=== PATIENT | male | born 1965 | race Two or more races ===

== ENCOUNTER 2023-07-20 03:37 | Inpatient (IN) | payer MEDICAID ==
[~2023-07-20] VITALS: Ht 167.6 cm; Wt 77.1 kg
[2023-07-20] VITALS (7 sets, daily range): BP systolic 93; BP diastolic 58; TEMP 98.8; O2SAT 93–100
[2023-07-20] MEDS ORDERED: ACETAMINOPHEN 650 MG/SUPP.RECT RC ONE ×2 (03:56→04:00)
[2023-07-20] MEDS ORDERED: IV NS 0.9% 1,000 ML BAG IV ONE (04:00)
[2023-07-20 04:11] LABS: EOSINOPHILS # (AUTO) 0.1 K/uL (0.0-0.7); EOSINOPHILS % (AUTO) 0.9 % (0.0-6.0); HEMATOCRIT 36 % (39-51); HEMOGLOBIN 12.2 g/dL (13.5-17.5); LYMPHOCYTES # (AUTO) 0.3 K/uL (0.8-4.8); LYMPHOCYTES % (AUTO) 3.5 % (20.0-44.0); MEAN CORPUSCULAR HEMOGLOBIN 28 PG (26.0-33.0); MEAN CORPUSCULAR HGB CONC 34 g/dl (31.0-36.0); MEAN CORPUSCULAR VOLUME 84 fL (80-96); MONOCYTES % (AUTO) 0.4 % (2.0-12.0); NEUTROPHILS # (AUTO) 7.3 K/uL (1.8-8.9); NEUTROPHILS % (AUTO) 95.2 % (43.0-81.0); PLATELET COUNT (AUTO) 334 K/uL (150-450); RED BLOOD CELL COUNT(AUTO) 4.33 MIL/uL (4.5-6.0); WHITE BLOOD COUNT (AUTO) 7.7 K/uL (4.3-11.0)
[2023-07-20 04:26] LABS: APPEARANCE,URINE TURBID (CLEAR); BILIRUBIN,URINE 1+ (NEGATIVE); BLOOD, URINE 3+ Ery/uL (NEGATIVE); COLOR,URINE DARK YELLOW (YELLOW); KETONES,URINE NEGATIVE (NEGATIVE); LEUKOCYTE ESTERASE ,URINE 2+ (NEGATIVE); NITRITE, URINE NEGATIVE (NEGATIVE); PH,URINE 5.5 (5.0-8.0); PROTEIN,URINE 2+ mg/dl (NEGATIVE); RBC,URINE 21-50 /HPF (0-2); UGLUCOSE NEGATIVE (NEGATIVE); UROBILINOGEN,URINE 0.2 EU/dL (0.2)
[2023-07-20 04:26] LABS: INR 1.08 (0.91-1.10); PARTIAL THROMBOPLASTIN TIME 25.6 SEC (24.3-34.3); PROTHROMBIN TIME 11.4 SECS (9.2-11.1)
[2023-07-20 04:27] LABS: ADD URINE CULTURE YES; BACTERIA,URINE Few /HPF (None Seen); SQUAMOUS EPITHELIAL CELL,UR Few /HPF (None Seen)
[2023-07-20 04:28] LABS: CALCIUM, SERUM 9.4 mg/dL (8.5-10.1); CARBON DIOXIDE 23 mmol/L (21-32); CHLORIDE 101 mmol/L (98-107); CREATININE 1.4 mg/dL (0.6-1.3); GLUCOSE 134 mg/dL (74-106); POTASSIUM 3.6 mmol/L (3.5-5.1); SODIUM SERUM 137 mmol/L (136-145); UREA NITROGEN, BLOOD 25 mg/dL (7-18)
[2023-07-20 04:44] LABS: ALANINE AMINOTRANSFERASE 34 U/L (12-78); ALBUMIN 2.8 g/dL (3.4-5.0); ALKALINE PHOSPHATASE 287 U/L (46-116); ASPARTATE AMINOTRANSFERASE 35 U/L (15-37); BILIRUBIN,DIRECT 0.5 mg/dL (0.0-0.2); BILIRUBIN,TOTAL 0.9 mg/dL (0.2-1.0); TOTAL PROTEIN, SERUM 7.9 g/dL (6.4-8.2)
[2023-07-20 04:53] LABS: LACTIC ACID 5.2 mmol/L (0.4-2.0)
[2023-07-20] MEDS ORDERED: LEVOFLOXACIN 750 MG /D5W 150ML 150 ML IV ONE ×2 (04:59→05:00)
[2023-07-20] MEDS ORDERED: Z GUARD REMEDY 4 OZ OINT TP PRN (06:30)
[2023-07-20] MEDS ORDERED: MAG HYDROX/AL HYDROX/SIMETH 30 ML UDC PO PRN (06:30)
[2023-07-20] MEDS ORDERED: ZOLPIDEM TARTRATE 5 MG TABLET PO PRN (06:30)
[2023-07-20] MEDS ORDERED: ONDANSETRON HCL/PF 4 MG/2 ML VIAL IVP PRN (06:30)
[2023-07-20] MEDS ORDERED: ACETAMINOPHEN 325 MG TABLET PO PRN (06:30)
[2023-07-20] MEDS ORDERED: MAGNESIUM HYDROXIDE 30 ML UDC PO PRN (06:30)
[2023-07-20] MEDS: IV NS 0.9% 1,000 ML IV PRN (08:00)
[2023-07-20] MEDS ORDERED: CEFEPIME 1 GM in IV D5W 50 ML IV SCH (08:00)
[2023-07-20] MEDS ORDERED: ACET-868 GT (08:42)
[2023-07-20] MEDS ORDERED: INSU100V3 SQ (08:42)
[2023-07-20] MEDS ORDERED: MULT-447 GT (08:42)
[2023-07-20] MEDS ORDERED: BISA10SU11 RC (08:42)
[2023-07-20] MEDS ORDERED: DEXT50DI8 IV (08:42)
[2023-07-20] MEDS ORDERED: SACU1TAB GT (08:42)
[2023-07-20] MEDS ORDERED: AMIN30LI2 GT (08:42)
[2023-07-20] MEDS ORDERED: FAMO20TA8 GT (08:42)
[2023-07-20] MEDS ORDERED: ASCO-352 GT (08:42)
[2023-07-20] MEDS ORDERED: POLY17PO4 GT (08:42)
[2023-07-20] MEDS ORDERED: ZINC50TA69 GT (08:42)
[2023-07-20] MEDS ORDERED: ONDA4TAB5 GT (08:42)
[2023-07-20] MEDS ORDERED: CHLO473M5 MM (08:42)
[2023-07-20] MEDS ORDERED: DOXA4TAB3 GT (08:42)
[2023-07-20] MEDS ORDERED: HYDR-4076 GT (08:42)
[2023-07-20] MEDS ORDERED: NUTR250L58 GT (08:42)
[2023-07-20] MEDS ORDERED: CRAN425C6 GT (08:42)
[2023-07-20] MEDS ORDERED: HEPA50007 SQ (08:42)
[2023-07-20] MEDS ORDERED: LEVE100S GT (08:42)
[2023-07-20] MEDS ORDERED: LORA10TA7 GT (08:42)
[2023-07-20] MEDS ORDERED: SENN-261 GT (08:42)
[2023-07-20] MEDS ORDERED: BROM5CAP3 GT (08:42)
[2023-07-20] MEDS: VANCOMYCIN 1.25 GM in IV D5W 250 ML IV SCH (08:55)
[2023-07-20] MEDS: CEFEPIME 1 GM in IV D5W 50 ML IV SCH (13:00)
[2023-07-20] MEDS ORDERED: hydrALAZINE HCL 25 MG TABLET GT PRN (19:00)
[2023-07-20] MEDS ORDERED: ACETAMINOPHEN 325 MG TABLET MC PRN (19:00)
[2023-07-20] MEDS ORDERED: DEXTROSE 50%-WATER 50 ML DISP.SYRIN IV PRN ×2 (19:00)
[2023-07-20] MEDS ORDERED: BISACODYL SUPP (10 MG) 10 MG/SUPP.RECT SUPP.RECT RC PRN (19:00)
[2023-07-20] MEDS: LEVETIRACETAM SOL (5 ML) 100 MG/ML UDC GT SCH (21:38)
[2023-07-20] MEDS: HEPARIN SODIUM, PORCINE 5000 UNITS/1 ML VIAL SQ SCH (21:39)
[2023-07-20] MEDS: SACUBITRIL/VALSARTAN 1 EACH TABLET GT SCH (21:40)
[2023-07-20] MEDS: BROMOCRIPTINE MESYLATE (2.5MG) 2.5 MG TABLET GT SCH ×2 (21:40→21:51)
[2023-07-20] MEDS: CHLORHEXIDINE GLUCONATE 15 ML UDC MM SCH (21:41)
[2023-07-21] VITALS (11 sets, daily range): BP systolic 94–105; BP diastolic 65–78; TEMP 98.1–98.7; O2SAT 94–100
[2023-07-21] MEDS ORDERED: VITAL AF 1.2 1,000 ML BOTTLE GT PRN
[2023-07-21] MEDS: IV NS 0.9% 1,000 ML IV PRN ×2 (00:23→17:48)
[2023-07-21] MEDS: BLOOD SUGAR DIAGNOSTIC 1 EACH STRIP IN SCH ×5 (00:24→23:22)
[2023-07-21] MEDS: INSULIN REGULAR, HUMAN 100 UNIT/ML 3 ML VIAL SQ PRN ×3 (00:31→23:21)
[2023-07-21] MEDS: BROMOCRIPTINE MESYLATE (2.5MG) 2.5 MG TABLET GT SCH ×3 (05:00→21:47)
[2023-07-21 06:56] LABS: BASOPHILS # (AUTO) 0.1 K/uL (0.0-0.2); BASOPHILS % (AUTO) 0.3 % (0.0-2.0); EOSINOPHILS # (AUTO) 0.4 K/uL (0.0-0.7); EOSINOPHILS % (AUTO) 1.8 % (0.0-6.0); HEMATOCRIT 31 % (39-51); HEMOGLOBIN 10.1 g/dL (13.5-17.5); LYMPHOCYTES # (AUTO) 1.4 K/uL (0.8-4.8); LYMPHOCYTES % (AUTO) 6.3 % (20.0-44.0); MEAN CORPUSCULAR HEMOGLOBIN 28 PG (26.0-33.0); MEAN CORPUSCULAR HGB CONC 33 g/dl (31.0-36.0); MEAN CORPUSCULAR VOLUME 85 fL (80-96); MONOCYTES % (AUTO) 4.7 % (2.0-12.0); NEUTROPHILS # (AUTO) 18.9 K/uL (1.8-8.9); NEUTROPHILS % (AUTO) 86.9 % (43.0-81.0); PLATELET COUNT (AUTO) 295 K/uL (150-450); RED CELL DISTRIBUTION WIDTH 13.6 % (11.5-15.0); WHITE BLOOD COUNT (AUTO) 21.7 K/uL (4.3-11.0)
[2023-07-21 07:03] LABS: CALCIUM, SERUM 9.1 mg/dL (8.5-10.1); CREATININE 1.2 mg/dL (0.6-1.3); PHOSPHORUS 3.6 mg/dL (2.5-4.9); POTASSIUM 3.4 mmol/L (3.5-5.1)
[2023-07-21] MEDS: LEVETIRACETAM SOL (5 ML) 100 MG/ML UDC GT SCH ×2 (08:38→21:45)
[2023-07-21] MEDS: LORATADINE 10 MG TABLET GT SCH (08:38)
[2023-07-21] MEDS: SENNOSIDES 8.6 MG TABLET GT SCH (08:38)
[2023-07-21] MEDS: ASCORBIC ACID 500 MG TABLET GT SCH (08:39)
[2023-07-21] MEDS: DOXAZOSIN MESYLATE (4 MG) 4 MG TABLET GT SCH (08:39)
[2023-07-21] MEDS: FAMOTIDINE (20 MG) 20 MG TABLET GT SCH ×2 (08:39→17:48)
[2023-07-21] MEDS: CHLORHEXIDINE GLUCONATE 15 ML UDC MM SCH ×2 (08:39→21:51)
[2023-07-21] MEDS: HEPARIN SODIUM, PORCINE 5000 UNITS/1 ML VIAL SQ SCH ×2 (08:43→21:53)
[2023-07-21] MEDS: VANCOMYCIN 1.25 GM in IV D5W 250 ML IV SCH (08:45)
[2023-07-21] MEDS: POLYETHYLENE GLYCOL 3350 17 GM POWD.PACK GT SCH (08:47)
[2023-07-21] MEDS: DAKINS QUARTER STRENGTH (0.125%) 480 ML BOTTLE TOP SCH (08:48)
[2023-07-21] MEDS: SACUBITRIL/VALSARTAN 1 EACH TABLET GT SCH ×2 (08:51→21:47)
[2023-07-21] MEDS ORDERED: POTASSIUM CHLORIDE 20 MEQ POWDER PACKET GT ONE (10:00)
[2023-07-21] MEDS: CEFEPIME 1 GM in IV D5W 50 ML IV SCH (12:29)
[2023-07-21] MEDS ORDERED: VITAL AF 1.2 1,000 ML BOTTLE GT SCH (13:00)
[2023-07-21] MEDS ORDERED: MAGNESIUM HYDROXIDE 30 ML UDC GT PRN (13:04)
[2023-07-21] MEDS ORDERED: ZOLPIDEM TARTRATE 5 MG TABLET GT PRN (13:04)
[2023-07-21] MEDS ORDERED: MAG HYDROX/AL HYDROX/SIMETH 30 ML UDC GT PRN (13:04)
[2023-07-21] MEDS ORDERED: ACETAMINOPHEN 650 MG/20.3 ML UDC GT PRN (13:30)
[2023-07-21] MEDS: PROSOURCE / PROSTAT (PYXIS) 30 ML UDC GT SCH (17:48)
[2023-07-21] MEDS: MUPIROCIN OINT 2% 22 GM TUBE NS SCH (21:44)
[2023-07-22] VITALS (12 sets, daily range): BP systolic 109–138; BP diastolic 73–96; TEMP 97.9–99; O2SAT 95–100
[2023-07-22] MEDS: BROMOCRIPTINE MESYLATE (2.5MG) 2.5 MG TABLET GT SCH ×3 (05:28→21:45)
[2023-07-22] MEDS: INSULIN REGULAR, HUMAN 100 UNIT/ML 3 ML VIAL SQ PRN (05:57)
[2023-07-22] MEDS: BLOOD SUGAR DIAGNOSTIC 1 EACH STRIP IN SCH ×3 (05:58→18:39)
[2023-07-22 08:32] LABS: BASOPHILS % (AUTO) 0.2 % (0.0-2.0); EOSINOPHILS # (AUTO) 0.3 K/uL (0.0-0.7); EOSINOPHILS % (AUTO) 2.3 % (0.0-6.0); HEMATOCRIT 27 % (39-51); HEMOGLOBIN 8.7 g/dL (13.5-17.5); LYMPHOCYTES # (AUTO) 2.2 K/uL (0.8-4.8); LYMPHOCYTES % (AUTO) 14.7 % (20.0-44.0); MEAN CORPUSCULAR HEMOGLOBIN 28 PG (26.0-33.0); MEAN CORPUSCULAR HGB CONC 33 g/dl (31.0-36.0); MEAN CORPUSCULAR VOLUME 85 fL (80-96); MONOCYTES # (AUTO) 0.8 K/uL (0.1-1.30); MONOCYTES % (AUTO) 5.1 % (2.0-12.0); NEUTROPHILS # (AUTO) 11.5 K/uL (1.8-8.9); NEUTROPHILS % (AUTO) 77.7 % (43.0-81.0); PLATELET COUNT (AUTO) 303 K/uL (150-450); RED BLOOD CELL COUNT(AUTO) 3.14 MIL/uL (4.5-6.0); RED CELL DISTRIBUTION WIDTH 13.4 % (11.5-15.0); WHITE BLOOD COUNT (AUTO) 14.9 K/uL (4.3-11.0)
[2023-07-22] MEDS: CHLORHEXIDINE GLUCONATE 15 ML UDC MM SCH ×2 (08:34→21:41)
[2023-07-22] MEDS: PROSOURCE / PROSTAT (PYXIS) 30 ML UDC GT SCH ×2 (08:34→17:29)
[2023-07-22] MEDS: POLYETHYLENE GLYCOL 3350 17 GM POWD.PACK GT SCH (08:34)
[2023-07-22] MEDS: LEVETIRACETAM SOL (5 ML) 100 MG/ML UDC GT SCH ×2 (08:35→21:41)
[2023-07-22] MEDS: DOXAZOSIN MESYLATE (4 MG) 4 MG TABLET GT SCH (08:36)
[2023-07-22] MEDS: ASCORBIC ACID 500 MG TABLET GT SCH (08:36)
[2023-07-22] MEDS: LORATADINE 10 MG TABLET GT SCH (08:36)
[2023-07-22] MEDS: FAMOTIDINE (20 MG) 20 MG TABLET GT SCH ×2 (08:37→17:30)
[2023-07-22] MEDS: SENNOSIDES 8.6 MG TABLET GT SCH (08:37)
[2023-07-22] MEDS: DAKINS QUARTER STRENGTH (0.125%) 480 ML BOTTLE TOP SCH (08:38)
[2023-07-22] MEDS: HEPARIN SODIUM, PORCINE 5000 UNITS/1 ML VIAL SQ SCH ×3 (08:38→21:44)
[2023-07-22] MEDS: SACUBITRIL/VALSARTAN 1 EACH TABLET GT SCH ×2 (08:40→21:42)
[2023-07-22] MEDS: VANCOMYCIN 1.25 GM in IV D5W 250 ML IV SCH (08:41)
[2023-07-22] MEDS: MUPIROCIN OINT 2% 22 GM TUBE NS SCH ×2 (08:43→21:44)
[2023-07-22 08:45] LABS: CALCIUM, SERUM 8.9 mg/dL (8.5-10.1); CREATININE 0.8 mg/dL (0.6-1.3); MAGNESIUM 1.9 mg/dL (1.8-2.4); POTASSIUM 3.5 mmol/L (3.5-5.1)
[2023-07-22] MEDS: CEFEPIME 1 GM in IV D5W 50 ML IV SCH (12:16)
[2023-07-22] MEDS: IV NS 0.9% 1,000 ML IV PRN (18:42)
[2023-07-22] MEDS: VANCOMYCIN 1 GM in IV D5W 250ml IV SCH (20:00)
[2023-07-22] MEDS: JEVITY 1.2 CAL 1,000 ML BOTTLE GT PRN (22:16)
[2023-07-23] VITALS (12 sets, daily range): BP systolic 118–133; BP diastolic 83–95; TEMP 97.5–98.5; O2SAT 96–99
[2023-07-23] MEDS: BLOOD SUGAR DIAGNOSTIC 1 EACH STRIP IN SCH ×4 (00:05→17:58)
[2023-07-23] MEDS: INSULIN REGULAR, HUMAN 100 UNIT/ML 3 ML VIAL SQ PRN ×3 (00:29→17:58)
[2023-07-23] MEDS: BROMOCRIPTINE MESYLATE (2.5MG) 2.5 MG TABLET GT SCH ×3 (04:43→21:28)
[2023-07-23 07:12] LABS: BASOPHILS % (AUTO) 0.3 % (0.0-2.0); EOSINOPHILS # (AUTO) 0.3 K/uL (0.0-0.7); EOSINOPHILS % (AUTO) 3.9 % (0.0-6.0); HEMATOCRIT 33 % (39-51); HEMOGLOBIN 10.8 g/dL (13.5-17.5); LYMPHOCYTES # (AUTO) 1.6 K/uL (0.8-4.8); LYMPHOCYTES % (AUTO) 19.8 % (20.0-44.0); MEAN CORPUSCULAR HEMOGLOBIN 28 PG (26.0-33.0); MEAN CORPUSCULAR HGB CONC 33 g/dl (31.0-36.0); MEAN CORPUSCULAR VOLUME 85 fL (80-96); MONOCYTES # (AUTO) 0.4 K/uL (0.1-1.30); MONOCYTES % (AUTO) 5.3 % (2.0-12.0); NEUTROPHILS # (AUTO) 5.7 K/uL (1.8-8.9); NEUTROPHILS % (AUTO) 70.7 % (43.0-81.0); PLATELET COUNT (AUTO) 289 K/uL (150-450); RED CELL DISTRIBUTION WIDTH 13.5 % (11.5-15.0); WHITE BLOOD COUNT (AUTO) 8.1 K/uL (4.3-11.0)
[2023-07-23 07:43] LABS: CALCIUM, SERUM 9.1 mg/dL (8.5-10.1); CREATININE 0.8 mg/dL (0.6-1.3); MAGNESIUM 1.8 mg/dL (1.8-2.4); PHOSPHORUS 4.6 mg/dL (2.5-4.9); POTASSIUM 3.3 mmol/L (3.5-5.1)
[2023-07-23] MEDS: CHLORHEXIDINE GLUCONATE 15 ML UDC MM SCH ×2 (09:28→21:29)
[2023-07-23] MEDS: LEVETIRACETAM SOL (5 ML) 100 MG/ML UDC GT SCH ×2 (09:28→21:26)
[2023-07-23] MEDS: PROSOURCE / PROSTAT (PYXIS) 30 ML UDC GT SCH ×2 (09:28→17:08)
[2023-07-23] MEDS: ASCORBIC ACID 500 MG TABLET GT SCH (09:29)
[2023-07-23] MEDS: FAMOTIDINE (20 MG) 20 MG TABLET GT SCH ×2 (09:29→17:08)
[2023-07-23] MEDS: SENNOSIDES 8.6 MG TABLET GT SCH (09:29)
[2023-07-23] MEDS: LORATADINE 10 MG TABLET GT SCH (09:29)
[2023-07-23] MEDS: SACUBITRIL/VALSARTAN 1 EACH TABLET GT SCH ×2 (09:29→21:26)
[2023-07-23] MEDS: DOXAZOSIN MESYLATE (4 MG) 4 MG TABLET GT SCH (09:29)
[2023-07-23] MEDS: VANCOMYCIN 1 GM in IV D5W 250ml IV SCH ×2 (09:30→20:04)
[2023-07-23] MEDS: POLYETHYLENE GLYCOL 3350 17 GM POWD.PACK GT SCH (09:30)
[2023-07-23] MEDS ORDERED: POTASSIUM CHLORIDE 20 MEQ POWDER PACKET NG SCH (10:00)
[2023-07-23] MEDS: DAKINS QUARTER STRENGTH (0.125%) 480 ML BOTTLE TOP SCH (10:04)
[2023-07-23] MEDS: MUPIROCIN OINT 2% 22 GM TUBE NS SCH ×2 (10:04→21:30)
[2023-07-23] MEDS: CEFEPIME 2 GM in IV D5W 100 ML IV SCH ×2 (12:40→21:29)
[2023-07-23] MEDS: JEVITY 1.2 CAL 1,000 ML BOTTLE GT PRN (20:37)
[2023-07-24] VITALS (12 sets, daily range): BP systolic 115–133; BP diastolic 83–94; TEMP 97.7–98.4; O2SAT 96–100
[2023-07-24] MEDS: BLOOD SUGAR DIAGNOSTIC 1 EACH STRIP IN SCH ×4 (00:42→17:11)
[2023-07-24] MEDS: INSULIN REGULAR, HUMAN 100 UNIT/ML 3 ML VIAL SQ PRN ×2 (00:42→05:35)
[2023-07-24] MEDS: BROMOCRIPTINE MESYLATE (2.5MG) 2.5 MG TABLET GT SCH ×3 (05:16→21:08)
[2023-07-24 07:16] LABS: BASOPHILS % (AUTO) 0.4 % (0.0-2.0); EOSINOPHILS # (AUTO) 0.3 K/uL (0.0-0.7); EOSINOPHILS % (AUTO) 4.2 % (0.0-6.0); HEMATOCRIT 34 % (39-51); HEMOGLOBIN 11.4 g/dL (13.5-17.5); LYMPHOCYTES # (AUTO) 1.6 K/uL (0.8-4.8); LYMPHOCYTES % (AUTO) 21.2 % (20.0-44.0); MEAN CORPUSCULAR HEMOGLOBIN 28 PG (26.0-33.0); MEAN CORPUSCULAR HGB CONC 33 g/dl (31.0-36.0); MEAN CORPUSCULAR VOLUME 84 fL (80-96); MONOCYTES # (AUTO) 0.5 K/uL (0.1-1.30); MONOCYTES % (AUTO) 6.6 % (2.0-12.0); NEUTROPHILS % (AUTO) 67.6 % (43.0-81.0); PLATELET COUNT (AUTO) 302 K/uL (150-450); RED BLOOD CELL COUNT(AUTO) 4.12 MIL/uL (4.5-6.0); RED CELL DISTRIBUTION WIDTH 13.3 % (11.5-15.0); WHITE BLOOD COUNT (AUTO) 7.4 K/uL (4.3-11.0)
[2023-07-24 07:32] LABS: CALCIUM, SERUM 9.4 mg/dL (8.5-10.1); CREATININE 0.7 mg/dL (0.6-1.3); MAGNESIUM 1.8 mg/dL (1.8-2.4); PHOSPHORUS 4.3 mg/dL (2.5-4.9); POTASSIUM 3.4 mmol/L (3.5-5.1)
[2023-07-24] MEDS: VANCOMYCIN 1 GM in IV D5W 250ml IV SCH ×2 (07:51→20:04)
[2023-07-24] MEDS: PROSOURCE / PROSTAT (PYXIS) 30 ML UDC GT SCH ×2 (07:51→16:43)
[2023-07-24] MEDS: SENNOSIDES 8.6 MG TABLET GT SCH (08:49)
[2023-07-24] MEDS: DOXAZOSIN MESYLATE (4 MG) 4 MG TABLET GT SCH (08:50)
[2023-07-24] MEDS: ASCORBIC ACID 500 MG TABLET GT SCH (08:50)
[2023-07-24] MEDS: CHLORHEXIDINE GLUCONATE 15 ML UDC MM SCH ×2 (08:50→21:07)
[2023-07-24] MEDS: LORATADINE 10 MG TABLET GT SCH (08:50)
[2023-07-24] MEDS: LEVETIRACETAM SOL (5 ML) 100 MG/ML UDC GT SCH ×2 (08:50→21:07)
[2023-07-24] MEDS: POLYETHYLENE GLYCOL 3350 17 GM POWD.PACK GT SCH (08:50)
[2023-07-24] MEDS: FAMOTIDINE (20 MG) 20 MG TABLET GT SCH ×2 (08:50→16:42)
[2023-07-24] MEDS: MUPIROCIN OINT 2% 22 GM TUBE NS SCH ×2 (08:51→21:10)
[2023-07-24] MEDS: SACUBITRIL/VALSARTAN 1 EACH TABLET GT SCH ×2 (08:51→21:08)
[2023-07-24] MEDS: DAKINS QUARTER STRENGTH (0.125%) 480 ML BOTTLE TOP SCH (08:52)
[2023-07-24] MEDS: HEPARIN SODIUM, PORCINE 5000 UNITS/1 ML VIAL SQ SCH ×2 (08:52→21:11)
[2023-07-24] MEDS: CEFEPIME 2 GM in IV D5W 100 ML IV SCH (09:00)
[2023-07-24] MEDS ORDERED: POTASSIUM CHLORIDE 20 MEQ POWDER PACKET NG SCH (11:30)
[2023-07-24] MEDS: MEROPENEM 500 MG in IV NS 0.9% 50 ML IV SCH ×2 (15:08→21:09)
[2023-07-24] MEDS ORDERED: VANC1FRO2 IV (16:40)
[2023-07-24] MEDS ORDERED: MERO500V23 IV (16:40)
[2023-07-25] VITALS (7 sets, daily range): BP systolic 112–115; BP diastolic 83–95; TEMP 97.3–98.6; O2SAT 98
[2023-07-25] MEDS: BLOOD SUGAR DIAGNOSTIC 1 EACH STRIP IN SCH ×3 (00:12→12:00)
[2023-07-25] MEDS: INSULIN REGULAR, HUMAN 100 UNIT/ML 3 ML VIAL SQ PRN ×2 (00:13→05:20)
[2023-07-25] MEDS: MEROPENEM 500 MG in IV NS 0.9% 50 ML IV SCH ×2 (04:44→13:18)
[2023-07-25] MEDS: BROMOCRIPTINE MESYLATE (2.5MG) 2.5 MG TABLET GT SCH ×2 (04:44→13:19)
[2023-07-25 07:05] LABS: CALCIUM, SERUM 9.4 mg/dL (8.5-10.1); CREATININE 0.7 mg/dL (0.6-1.3); POTASSIUM 3.7 mmol/L (3.5-5.1)
[2023-07-25] MEDS: PROSOURCE / PROSTAT (PYXIS) 30 ML UDC GT SCH (08:33)
[2023-07-25] MEDS: LEVETIRACETAM SOL (5 ML) 100 MG/ML UDC GT SCH (08:34)
[2023-07-25] MEDS: VANCOMYCIN 1 GM in IV D5W 250ml IV SCH (08:34)
[2023-07-25] MEDS: SENNOSIDES 8.6 MG TABLET GT SCH (08:35)
[2023-07-25] MEDS: ASCORBIC ACID 500 MG TABLET GT SCH (08:35)
[2023-07-25] MEDS: LORATADINE 10 MG TABLET GT SCH (08:35)
[2023-07-25] MEDS: DOXAZOSIN MESYLATE (4 MG) 4 MG TABLET GT SCH (08:36)
[2023-07-25] MEDS: POLYETHYLENE GLYCOL 3350 17 GM POWD.PACK GT SCH (08:36)
[2023-07-25] MEDS: FAMOTIDINE (20 MG) 20 MG TABLET GT SCH (08:36)
[2023-07-25] MEDS: CHLORHEXIDINE GLUCONATE 15 ML UDC MM SCH (08:37)
[2023-07-25] MEDS: DAKINS QUARTER STRENGTH (0.125%) 480 ML BOTTLE TOP SCH (08:38)
[2023-07-25] MEDS: MUPIROCIN OINT 2% 22 GM TUBE NS SCH (08:38)
[2023-07-25] MEDS: SACUBITRIL/VALSARTAN 1 EACH TABLET GT SCH (08:42)
[2023-07-25] MEDS ORDERED: GLUCERNA 1.2 1,000 ML BOTTLE NG PRN (09:30)
[2023-07-25] MEDS: HEPARIN SODIUM, PORCINE 5000 UNITS/1 ML VIAL SQ SCH (09:56)
== END 2023-07-25 16:09 | DRG 710 ==
LOC: ER 03:48 → TELE1 08:13 → MEDSG1 07-25 11:06
PROVIDERS: ADMIT Nurse Practitioner Acute Care; ATTEND Nurse Practitioner Acute Care
PROC: 0QB10ZZ Excision of Sacrum, Open Approach (ICD-10-PCS; principal; 2023-07-23)
PROC: 02HV33Z Insertion of Infusion Device into Superior Vena Cava, Percutaneous Approach (ICD-10-PCS; 2023-07-23)
PROC: B548ZZA Ultrasonography of Superior Vena Cava, Guidance (ICD-10-PCS; 2023-07-23)
DX: A41.9 Sepsis, unspecified organism (principal); G93.41 Metabolic encephalopathy; E46 Unspecified protein-calorie malnutrition; N17.9 Acute kidney failure, unspecified; L89.154 Pressure ulcer of sacral region, stage 4; E87.20 Acidosis, unspecified; G91.4 Hydrocephalus in diseases classified elsewhere; N39.0 Urinary tract infection, site not specified; Z20.822 Contact with and (suspected) exposure to COVID-19; Z93.1 Gastrostomy status; Z93.0 Tracheostomy status; Z88.0 Allergy status to penicillin; R80.9 Proteinuria, unspecified; I69.398 Other sequelae of cerebral infarction; E88.09 Other disorders of plasma-protein metabolism, not elsewhere classified; Z98.2 Presence of cerebrospinal fluid drainage device; M46.28 Osteomyelitis of vertebra, sacral and sacrococcygeal region; I10 Essential (primary) hypertension; G40.909 Epilepsy, unspecified, not intractable, without status epilepticus; E87.6 Hypokalemia; D64.9 Anemia, unspecified; B96.89 Other specified bacterial agents as the cause of diseases classified elsewhere
CPT/HCPCS: 31720; 36415; 36569; 71045-TC; 72192-TC; 80048-TC; 80076-TC; 80202-TC; 81001; 82728-TC; 82962-TC; 83605-TC; 83735-TC; 84100-TC; 84484-TC; 85025-TC; 85045-TC; 85730-TC; 87040-TC; 87081-TC; 87086-TC; 93970-TC; 94640-TC; 94799-TC; A4217; A4223; A4623; A6253; A6403; G0378; J0692; J1644; J1815; J1953; J1956; J2185; J3370; J7030; J7050; J7060